=== PATIENT | female | born 1950 | race Caucasian/White ===

== ENCOUNTER → 2016-07-15 | Outpatient (CLI) | payer OTHER ==
[~2016-07-15] VITALS: Ht 160 cm; Wt 56.7 kg
[~2016-07-15] MED LIST: AMLODIPINE BES2.5 MG PO; AMLODIPINE BESYL5 MG PO; ANASTROZOLE1 MG PO; ATORVASTATIN CA80 MG PO; CENTRUM SILVER1 EAC3 PO; CIPRO500 MG PO; CITRATE OF MAG296 ML PO; COLACE100 MG PO; DONEPEZIL HCL5 MG PO; EFFEXOR XR75 MG PO; ELAVIL10 MG PO; FLEET ENEMA-AD118 ML PR; KLOR-CON 1010 ME1 PO; LAXATIVE SUPPOS10 MG PR; LO-DOSE ASPIRIN81 M2 PO; MEGACE ES625 MG/5 M PO; MILK OF MAGN PO; MIRALAX17 GM PO; OMEPRAZOLE40 M1 PO; PRIMIDONE50 MG PO; PROLIA60 MG/1 ML SC; SENOKOT,SENN1 TABLET PO; SPIRONOLACTONE25 MG PO; SUPER B-50 COM1 EACH PO; VITAMIN C1000 MG PO; VITAMIN D31000 UNIT PO; VOLTAREN 1% GE100 GM TP
== END | disposition home or self-care (01) ==
LOC: AMB 08:57
PROC: 0DBE8ZZ Excision of Large Intestine, Via Natural or Artificial Opening Endoscopic (ICD-10-PCS; principal; 2016-07-15)
DX: K59.09 Other constipation (principal); D12.0 Benign neoplasm of cecum; D12.3 Benign neoplasm of transverse colon; K63.89 Other specified diseases of intestine; I10 Essential (primary) hypertension; I73.89 Other specified peripheral vascular diseases; F41.9 Anxiety disorder, unspecified; K21.9 Gastro-esophageal reflux disease without esophagitis; M81.0 Age-related osteoporosis without current pathological fracture; E78.5 Hyperlipidemia, unspecified; R25.1 Tremor, unspecified
CPT/HCPCS: 88305; B4087; J0330; J1100; J2405; J3010